=== PATIENT | female | born 1975 | race Caucasian/White ===

== ENCOUNTER 2017-12-12 14:27 | Emergency (ER) | payer MEDICAID, OTHER ==
[~2017-12-12] VITALS: Ht 167.6 cm; Wt 80.0 kg
[2017-12-12] MEDS ORDERED: NICO-630 TOP (15:30)
[2017-12-12] MEDS ORDERED: SULF1TAB49 PO (15:30)
[2017-12-12 15:36] VITALS: BP 129/58
== END 2017-12-12 15:38 | disposition home or self-care (01) ==
LOC: ER 14:29
DX: L03.012 Cellulitis of left finger (principal); F17.200 Nicotine dependence, unspecified, uncomplicated; F10.10 Alcohol abuse, uncomplicated; F12.10 Cannabis abuse, uncomplicated; F15.10 Other stimulant abuse, uncomplicated
CPT/HCPCS: 99283